=== PATIENT | male | born 2000 | race Caucasian/White ===

== ENCOUNTER 2019-07-12 21:27 | Emergency (ER) | payer BC ==
--- NOTE | 2019-07-12 21:32 | UC ---
Throat Pain/Nasal Werner HPI - HPI Summary HPI Summary: 19 yo male presents with sore throat and headache since yesterday. He tells me that he is a [employer] student and has had many sick contacts with various illnesses. Yesterday he developed a headache and sore throat. Has not taken anything OTC for his symptoms. Denies fever, chills, sinus symptoms, cough, rash , n/v. - History of Current Complaint Stated Complaint: SORE THROAT,HEADACHE Time Seen by Provider: 07/12/19 21:31 Hx Obtained From: Patient Onset/Duration: Sudden Onset Severity: Moderate Pain Intensity: 5 Pain Scale Used: 0-10 Numeric - Allergies/Home Medications Allergies/Adverse Reactions: Allergies Allergy/AdvReac Type Severity Reaction Status Date / Time seasonal Allergy Sneezing Uncoded 07/12/19 21:39 Home Medications: Home Medications Acetaminophen [Tylenol Extra Strength] 650 mg PO ONCE PRN 07/12/19 [History Confirmed 07/12/19] Ascorbic Acid TAB* [Vitamin C TAB*] 1,000 mg PO DAILY 07/12/19 [History Confirmed 07/12/19] D-Methorphan/PE/Acetaminophen [Vicks Dayquil Cold & Flu] 2 cap PO ONCE PRN 07/12 [History Confirmed 07/12/19] Dextromethorphn/Acetaminoph/Cp [Vicks Nyquil Cold & Flu N] 1 liq PO ONCE PRN [History Confirmed 07/12/19] glipiZIDE TAB* [Glucotrol TAB*] 10 mg PO DAILY 07/12/19 [History Confirmed 07/12] metFORMIN* [Glucophage 500 MG TAB *] 2,000 mg PO DAILY 07/12/19 [History Confirmed 07/12/19] PMH/Surg Hx/FS Hx/Imm Hx Endocrine History: Diabetes Review of Systems All Other Systems Reviewed And Are Negative: No Constitutional: Positive: Negative Skin: Positive: Negative Eyes: Positive: Negative ENT: Positive: Sore Throat Respiratory: Positive: Negative Cardiovascular: Positive: Negative Gastrointestinal: Positive: Negative Neurovascular: Positive: Negative Neurological: Positive: Negative Psychological: Positive: Negative Physical Exam - Summary Physical Exam Summary: GENERAL: NAD. WDWN. No pain distress. SKIN: No rashes, sores, lesions, or open wounds. HEENT: Head: AT/NC Eyes: Conjunctiva clear without inflammation or discharge. Ears: Hearing grossly normal. TMs intact, no bulging, erythema, or edema. Nose: Nasal mucosa pink and moist. NTTP maxillary and frontal sinus. Throat: Posterior oropharynx moderate erythema and 3+ tonsillar enlargement. Moderate white exudates. Uvula midline. No hoarse voice or muffled voice. NECK: Supple. Nontender. No lymphadenopathy. CHEST: CTAB. No r/r/w. No accessory muscle use. Breathing comfortably and in no distress. CV: RRR.. Pulses intact. Cap refill <2seconds NEURO: Alert. PSYCH: Age appropriate behavior. Triage Information Reviewed: Yes Vital Signs: Vital Signs: Temp Pulse Resp BP Pulse Ox 101 F 92 20 155/79 99 07/12/19 21:43 07/12/19 21:43 07/12/19 21:43 07/12/19 21:43 07/12/19 21:43 Laboratory Tests 07/12/19 21:38 Group A Strep Rapid Negative Vital Signs Reviewed: Yes Throat Pain/Nasal Course/Dx - Course Course Of Treatment: POC strep negative. Suspect viral tonsillitis vs mono. 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 He was given ibuprofen in the clinic for his symptoms. Advised to rest, drink fluids, and take tylenol for fever and discomfort. F/u if symptoms do not improve within 5-7 days. - Differential Dx/Diagnosis Provider Diagnosis: Tonsillitis Discharge ED - Sign-Out/Discharge Documenting (check all that apply): Patient Departure All imaging exams completed and their final reports reviewed: No Studies - Discharge Plan Condition: Stable Disposition: HOME Patient Education Materials: Mononucleosis (ED), Tonsillitis (ED) Referrals: No Primary Care Phys,NOPCP [Primary Care Provider] - Additional Instructions: If you develop a fever, shortness of breath, chest pain, new or worsening symptoms - please call your PCP or go to the ED immediately. 1) Your strep test was negative today. 2) Your symptoms have a resemblance to mono - we have tested for this today and should have results tomorrow. 3) If the mono test is negative - your symptoms are likely due to a viral sore throat/tonsillitis that will resolve with rest, fluids, and tylenol - Billing Disposition and Condition Condition: STABLE Disposition: Home
[2019-07-12 21:50] VITALS: BP 155/79
[2019-07-12] MEDS ORDERED: Ibuprofen TAB* 400 MG PO ONE (21:51)
[2019-07-12] MEDS ORDERED: Acetaminophen TAB* 325 MG PO ONE (21:55)
[2019-07-13 12:28] LABS: ABS Lymphocytes 1.4 10^3/ul (1.0-4.8); ABS Monocytes 0.7 10^3/ul (0-0.8); Eosinophil % 0.1 %; Hematocrit 42 % (42-52); Hemoglobin 14.2 g/dL (14.0-18.0); Lymphocyte % 13.5 %; Mean Corpuscular HGB Conc 34 g/dL (31-36); Mean Corpuscular Hemoglobin 30 pg (27-31); Mean Corpuscular Volume 87 fL (80-94); Mean Platelet Volume 9.9 fL (7.4-10.4); Platelet Count 151 10^3/uL (150-450); Red Blood Count 4.81 10^6 /uL (4.18-5.48); Red Cell Distribution Width 13 % (10-15); White Blood Count 10.1 10^3/uL (3.5-10.8)
[2019-07-14 14:45] LABS: EBV Capsid Ag IgG Ab Positive (Negative); EBV Capsid Ag IgM Ab Negative (Negative); Epstein-Barr Nuclear Antigen Positive (Negative)
--- NOTE | 2019-07-15 07:19 | UC ---
- Progress Note Progress Note: Lab results from July 12, 2019 comes back Monospot negative EBV IgM negative EBV IgG and AG positive. These results are consistent with prior infection and not consistent with an acute mononucleosis infection. Nursing to call patient inform them of the results. Continue to treat symptomatically and follow up if not completely improved. Course/Dx - Diagnoses Provider Diagnoses: Tonsillitis Discharge ED - Sign-Out/Discharge Documenting (check all that apply): Patient Departure All imaging exams completed and their final reports reviewed: No Studies - Discharge Plan Condition: Stable Disposition: HOME Patient Education Materials: Mononucleosis (ED), Tonsillitis (ED) Referrals: No Primary Care Phys,NOPCP [Primary Care Provider] - Additional Instructions: If you develop a fever, shortness of breath, chest pain, new or worsening symptoms - please call your PCP or go to the ED immediately. 1) Your strep test was negative today. 2) Your symptoms have a resemblance to mono - we have tested for this today and should have results tomorrow. 3) If the mono test is negative - your symptoms are likely due to a viral sore throat/tonsillitis that will resolve with rest, fluids, and tylenol - Billing Disposition and Condition Condition: STABLE Disposition: Home
== END 2019-07-12 22:01 | disposition home or self-care (01) ==
LOC: UCCORT 21:27
DX: J03.90 Acute tonsillitis, unspecified (principal); R51 Headache; E11.9 Type 2 diabetes mellitus without complications; Z91.09 Other allergy status, other than to drugs and biological substances; Z79.84 Long term (current) use of oral hypoglycemic drugs
CPT/HCPCS: 36415; 85025; 86308; 86664; 86665; 87651; 99212; A9270-GY; G0463